=== PATIENT | female | born 1970 | race Caucasian/White ===

== ENCOUNTER 2024-02-28 10:18 | Emergency (ER) | payer BC, SELFPAY ==
[2024-02-28 10:20] VITALS: BP 161/95
--- NOTE | 2024-02-28 10:41 | ED.GENMED ---
History of Present Illness
General
Chief Complaint: Breathing Problem
Source: patient
Exam Limitations: none
Time Seen by Provider: 02/28/24 10:25
Travel History
Have you had any contact with someone who has COVID-19?: No
Do you have any symptoms of coronavirus? Fever > 100 degrees, chills, cough, shortness of breath, sore throat, loss of taste or smell, muscle aches, or headache?: No
History of Present Illness
History of Present Illness:
See MDM
Past History
Past History
ED Past Medical History: GERD, HTN (history of but not on any medications) and Other (Peptic ulcer disease)
ED Past Surgical History: Orthopedic
Social History
Tobacco: Non-smoker
Alcohol: None
Drug: None
Personal:
Living: with family
Employment: Employed
Phy Exam
Physical Exam
Physical Exam:
See MDM
Scores
Heart Failure Risk
Heart Failure Risk Score: Not Applicable
Course
Orders/Labs/Results
Orders:
Orders
02/28/24 10:23
Electrocardiogram (*1) Urgent
Reason for Study: Chest Pain
EKG- Treatment ONCE
02/28/24 10:39
Ketorolac [Toradol] 30 mg IV NOW STA
02/28/24 11:03
Complete Blood Count/With Diff Urgent
D-Dimer Urgent
02/28/24 12:02
Comprehensive Metabolic Panel Urgent
Troponin I Urgent
02/28/24 12:40
CR Chest - 2 Views Urgent
Comment:
Reason For Exam: left lateral chest pain
02/28/24 12:42
diazePAM [Valium Injection] 2 mg IV NOW STA
Abnormal Lab Results
02/28/24 02/28/24
11:03 12:02
MPV 12.7 H fL
(7.4-10.4)
Chloride 108 H mmol/L
(98-107)
02/28/24 11:03
02/28/24 12:02
Vital Signs
Initial and Last Documented VS:
Initial Vital Signs
Temp Pulse Resp BP Pulse Ox
98.4 F 92 20 161/95 100
02/28/24 10:20 02/28/24 10:20 02/28/24 10:20 02/28/24 10:20 02/28/24 10:20
Last Documented Vital Signs
Temp Pulse Resp BP Pulse Ox
98.4 F 92 20 142/80 97
02/28/24 10:20 02/28/24 10:20 02/28/24 10:20 02/28/24 13:07 02/28/24 13:15
MDM/Problems Addressed
Differential Diagnosis Includes:
HPI and MDM Narrative:
53-year-old female presenting with left-sided chest discomfort and shortness of breath. Patient states the pain occurs when she takes a deep breath or moves her arm. She noticed the pain occurred suddenly when she woke up from sleep. She denies
any recent travel.
On exam, she is well-appearing and toxic. There is muscle tenderness to her left scapular region. EKG nonischemic. Given her significant pain, will obtain D-dimer. Will give toradol
Physical exam
General: Well appearing and non-toxic
HEENT: protecting airway
Neck: appears supple
CV: No evidence of cyanosis
back: Muscle tenderness to left scapular region
Resp: No accessory muscle use. Lungs clear
Abd: Non-distended
Extremities: No deformities
Neuro: alert
Psych: Normal affect
Skin: Intact
Problems Addressed including Acute and Chronic Conditions affecting care:
1. Chest and back pain
Acuity: acute
Prognosis: stable
Details: Likely in setting of muscle spasm. EKG nonischemic. Will obtain D-dimer and troponin
Updates
D-dimer negative. Chest x-ray shows no acute disease. Patient was going home
Differential Diagnosis (but not limited to): Muscle strain, pneumothorax, PE
Testing considered: CT PE but will obtain D-dimer first
Drug therapy (if applicable): OTC meds, please see d/c instruction regarding Rx drugs
Amount and/or Complexity of Data Reviewed
Clinical info obtained from: Patient
External data reviewed: N/A
Labs I independently reviewed (but not limited to): Troponin normal, D-dimer negative
Radiology: X-ray independently reviewed: Chest x-ray clear
Pulse Ox: not hypoxic
EKG independently reviewed: Sinus rhythm, normal axis, no STEMI
Toilet And Laundry Soap Supervisor: N/A
Critical Care: N/A
Risk of Complication:
Social Determinants of health: Good social support
Discussed with other providers: N/A
Escalation of Care includes Admit/Obs: After being observed in the Emergency Department, pt stable for discharge.
Occasional wrong word or 'sound a like' substitutions may have occurred due to the inherent limitations of voice recognition software. Read the chart carefully and recognize, using context, where substitutions have occurred.
*Critical Care Note
Total Time (30-74mins, 75-104mins- exclusive of procedures): Not Applicable
ED Attending Note
-
Portions of this chart may have been created with voice recognition software.� Occasional wrong word or��sound alike� substitutions may have occurred due to the inherent limitations of voice recognition software.
Discharge Plan
Departure
Patient Disposition: Home (Routine Discharge)
Date of Disposition: 02/28/24
Time of Disposition: 13:50
Patient with high blood pressure during this ER visit?: Yes
Discharge Problem:
Muscle strain of chest wall
Instructions: Back Muscle Strain (DC)
Prescriptions:
New
diclofenac potassium 50 mg tablet
50 mg PO BID Qty: 20 0RF
diazepam [Valium] 5 mg tablet
5 mg PO BID PRN (Reason: muscle spasm) Qty: 14 0RF
No Action
gabapentin 300 MG capsule
300 mg PO DAILY
diazepam [Valium] 5 MG tablet
5 mg PO HS
Referrals:
Teresa Warner PA-C [Family Provider] -
Activity Restrictions/Additional Instructions:
Please return for any worsening symptoms.
You may return at any time if you have further concerns.
Please follow up with your doctor at the first available appointment, preferably this week.
Thank you for choosing [facility].
Interventions
Interventions:
*Risk Screen - Suicide Last Done: 02/28/24 11:04
*General Assessment Last Done: 02/28/24 11:04
*Neglect/Abuse Screening Last Done: 02/28/24 11:04
ED- Fall Risk Assessment Last Done: 02/28/24 11:04
*ED COVID-19 Vaccine History Last Done: 02/28/24 11:04
ED- Cardiac Assessment Last Done: 02/28/24 11:04
ED- Pulmonary Assessment Last Done: 02/28/24 11:04
Discharge Date and Time
Print Language: BRAZILIAN
[2024-02-28] MEDS: TORADOL 30 MG IV (11:01)
[2024-02-28 11:04] VITALS: BMI 34.1
[2024-02-28 11:08] VITALS: BP 142/85
[2024-02-28 11:22] LABS: % Basophils 0.7 % (0-2); % Eosinophils 4.6 % (0-6); % Immature Granulocytes 0.2 % (0-0.5); % Monocytes 8.1 % (1.7-9.3); % Neutrophils 53.4 % (42.2-75.2); Absolute Eosinophils 0.3 10^3/uL (0-0.7); Absolute Lymphocytes 1.8 10^3/uL (1.2-3.4); Absolute Monocytes 0.4 10^3/uL (0.1-0.6); Absolute Neutrophils 2.9 10^3/uL (1.4-6.5); Hematocrit 37.1 % (37.0-47.0); Hemoglobin 12.7 g/dL (12.0-16.0); Mean Corp Hgb Conc. 34.2 g/dL (33.0-37.0); Mean Corpuscular Hgb 29.6 pg (27.0-31.0); Mean Corpuscular Volume 86.5 fL (81.0-99.0); Mean Platelet Volume 12.7 fL (7.4-10.4); Nucleated Red Blood Cells % 0 %; Platelet Count 244 10^3/uL (130-400); Red Blood Cell Count 4.29 10^6/uL (4.20-5.40); Red Cell Dist. Width 13.8 % (11.5-14.5); White Blood Cell Count 5.4 10^3/uL (4.8-10.8)
[2024-02-28 12:06] LABS: D-Dimer 0.42 ug/mlFEU (0.00-0.50)
[2024-02-28 12:09] VITALS: BP 148/98
[2024-02-28 12:36] LABS: ALT (SGPT) 17 U/L (0-35); AST (SGOT) 27 U/L (14-36); Albumin 4.8 g/dl (3.5-5.0); Alkaline Phosphatase 76 U/L (38-126); Blood Urea Nitrogen 16 mg/dl (7-17); Calcium 10.1 mg/dl (8.4-10.2); Carbon Dioxide 27 mmol/L (22-30); Chloride 108 mmol/L (98-107); Estimated Creatinine Clearance 86 ml/min; Glucose 94 mg/dl (70-99); Sodium 140 mmol/L (135-145); Total Bilirubin 0.6 mg/dl (0.2-1.3); Total Protein 7.5 g/dl (6.3-8.2); eGFR > 60.00
[2024-02-28] MEDS: VALIUM INJECTION 2 MG IV (12:46)
[2024-02-28 12:48] LABS: Troponin I < 0.012 ng/ml
[2024-02-28 13:07] VITALS: BP 142/80
== END 2024-02-28 14:05 | disposition home or self-care (01) ==
LOC: EMR 10:18
PROVIDERS: EMERGENCY PHYSICIAN Student in an Organized Health Care Education/Training Program; FAMILY PHYSICIAN Physician Assistant Medical
DX: S29.011A Strain of muscle and tendon of front wall of thorax, initial encounter (principal); X58.XXXA Exposure to other specified factors, initial encounter; I10 Essential (primary) hypertension
CPT/HCPCS: 99285; 96374; 96375; 71046; 80053; 84484; 85025; 85379; 93005

== ENCOUNTER → 2024-08-11 09:13 | Outpatient (REF) | payer BC, SELFPAY | LOC: WDC 09:13 | PROVIDERS: ATTENDING PHYSICIAN Physician Assistant Medical | DX: N63.10 Unspecified lump in the right breast, unspecified quadrant (principal); N63.13 Unspecified lump in the right breast, lower outer quadrant | CPT/HCPCS: 76642; 77062; 77066 ==

== ENCOUNTER → 2024-08-25 06:20 | Day surgery (SDC) | payer BC, SELFPAY | LOC: GI 06:20 | PROVIDERS: ATTENDING PHYSICIAN Internal Medicine Gastroenterology | DX: Z12.11 Encounter for screening for malignant neoplasm of colon (principal); K57.30 Diverticulosis of large intestine without perforation or abscess without bleeding; R13.10 Dysphagia, unspecified; R14.0 Abdominal distension (gaseous); K44.9 Diaphragmatic hernia without obstruction or gangrene; K31.89 Other diseases of stomach and duodenum; D12.2 Benign neoplasm of ascending colon; K29.50 Unspecified chronic gastritis without bleeding; K21.9 Gastro-esophageal reflux disease without esophagitis | CPT/HCPCS: 45385; 43239; 88305; 88342 ==

== ENCOUNTER → 2024-09-01 11:16 | Outpatient (REF) | payer BC, SELFPAY | LOC: HWRAD 11:16 | PROVIDERS: ATTENDING PHYSICIAN Internal Medicine Gastroenterology; FAMILY PHYSICIAN Physician Assistant Medical | DX: R14.0 Abdominal distension (gaseous) (principal) | CPT/HCPCS: 76700 ==

== ENCOUNTER → 2024-09-19 16:24 | Outpatient (REF) | payer BC, SELFPAY | LOC: RAD 16:24 | PROVIDERS: ATTENDING PHYSICIAN Internal Medicine Gastroenterology; FAMILY PHYSICIAN Physician Assistant Medical | DX: R10.9 Unspecified abdominal pain (principal) | CPT/HCPCS: 74177; Q9967 ==

== ENCOUNTER 2024-09-23 20:24 | Observation (INO) | payer BC, SELFPAY ==
[2024-09-23 15:00] VITALS: BP 169/106
[2024-09-23 15:28] LABS: % Basophils 0.6 % (0-2); % Eosinophils 2.4 % (0-6); % Immature Granulocytes 0.2 % (0-0.5); % Lymphocytes 27.1 % (20.5-51.1); % Monocytes 7.1 % (1.7-9.3); % Neutrophils 62.6 % (42.2-75.2); Absolute Eosinophils 0.2 10^3/uL (0-0.7); Absolute Lymphocytes 1.7 10^3/uL (1.2-3.4); Absolute Monocytes 0.5 10^3/uL (0.1-0.6); Hematocrit 40.8 % (37.0-47.0); Hemoglobin 13.7 g/dL (12.0-16.0); Mean Corp Hgb Conc. 33.6 g/dL (33.0-37.0); Mean Corpuscular Hgb 29.8 pg (27.0-31.0); Mean Corpuscular Volume 88.7 fL (81.0-99.0); Nucleated Red Blood Cells % 0 %; Platelet Count 280 10^3/uL (130-400); Red Cell Dist. Width 13.1 % (11.5-14.5); White Blood Cell Count 6.4 10^3/uL (4.8-10.8)
[2024-09-23 15:46] LABS: HCG, Serum Qualitative Screen Negative
[2024-09-23 15:48] LABS: ALT (SGPT) 31 U/L (0-35); AST (SGOT) 30 U/L (14-36); Albumin 4.8 g/dl (3.5-5.0); Alkaline Phosphatase 86 U/L (38-126); Blood Urea Nitrogen 14 mg/dl (7-17); Calcium 9.9 mg/dl (8.4-10.2); Carbon Dioxide 26 mmol/L (22-30); Chloride 102 mmol/L (98-107); Glucose 99 mg/dl (70-99); Lipase 97 U/L (23-300); Potassium 4.6 mmol/L (3.5-5.1); Sodium 139 mmol/L (135-145); Total Bilirubin 0.5 mg/dl (0.2-1.3); Total Protein 7.5 g/dl (6.3-8.2); eGFR > 60.00
--- NOTE | 2024-09-23 18:37 | ED.GENMED ---
History of Present Illness
General
Chief Complaint: Abdominal Pain
Time Seen by Provider: 09/23/24 16:04
History of Present Illness
History of Present Illness:
54-year-old female presents the emergency department for evaluation of abdominal distention and right upper quadrant pain for the past several weeks. She initially had upper and lower endoscopy performed by GI with no significant findings with the
exception of mild erythematous mucosa in the gastric antrum. She was recommended to continue twice daily omeprazole. Also had outpatient CT and ultrasound performed showing no distinct findings. She continues with severe right upper quadrant
pain, worse after eating any food.
Past History
Past History
ED Past Medical History: GERD, HTN (history of but not on any medications) and Other (Peptic ulcer disease)
ED Past Surgical History: Orthopedic
Social History
Tobacco: Non-smoker
Alcohol: None
Drug: None
Personal:
Living: with family
Employment: Employed
Review of Systems
Review of Systems
Allergies reviewed?: Yes
All Other Systems: ROS reviewed and negative except as documented in HPI and ROS
Phy Exam
Physical Exam
Physical Exam:
GEN: Well appearing, NAD, WDWN
HEENT: Oral mucosa moist, no scleral icterus
Cardiac: Regular rate
Lung: No respiratory distress, no tachypnea
Abdomen: Soft, focal severe tenderness to the right upper quadrant
MSK: No gross deformity or injuries
Skin: Good color, no pallor or jaundice, no rashes
Neuro: AO x3, moves all extremities freely
Psych: Calm, cooperative
Course
Orders/Labs/Results
Orders:
Orders
09/23/24 15:05
Test Result ONCE
09/23/24 15:19
Complete Blood Count/With Diff Urgent
Comprehensive Metabolic Panel Urgent
HCG, Serum Qualitative Screen Urgent
Lipase Urgent
09/23/24 16:25
HYDROmorphone [Dilaudid] 0.5 mg IV NOW STA
US Abdomen Limited Urgent
Comment:
Reason For Exam: RUQ pain
09/23/24 19:41
Admit/Transfer Patient As Directed
Co-Sign Provider:
Level of Care: Observation services
Assign to:: Medical/Surgical
Physician / Group: dr hernandez
Diagnosis: biliary colic
Code Status As Directed
Resuscitation Status: Full Code
PRN Pain Medication Management As Directed
May give lesser potent ordered pain med per pt: Yes
preference::
Protocol:: Medication orders for pain may be administered in a
manner that supports deferring to patient preference
when the pt is:
- Requesting an ordered lesser potent pain medication.
Least to most potent pain medications are defined
as: acetaminophen < NSAID < tramadol < opioids
(morphine, oxycodone, hydromorphone).
- Requesting a lesser dose of the same medication IF
ORDERED.
- Requesting a less intrusive route of administration
if both routes are prescribed by the provider (PO <
IV).
09/23/24 20:09
Ketorolac [Toradol] 15 mg IV NOW STA
Abnormal Lab Results
09/23/24
15:19
MPV 12.0 H fL
(7.4-10.4)
09/23/24 15:19
09/23/24 15:19
Vital Signs
Initial and Last Documented VS:
Initial Vital Signs
Temp Pulse Resp BP Pulse Ox
98.1 F 91 18 169/106 99
09/23/24 15:00 09/23/24 15:00 09/23/24 15:00 09/23/24 15:00 09/23/24 15:00
Last Documented Vital Signs
Temp Pulse Resp BP Pulse Ox
98.1 F 91 17 169/106 99
09/23/24 15:00 09/23/24 15:00 09/23/24 16:25 09/23/24 15:00 09/23/24 19:37
MDM/Problems Addressed
MDM/Problems Addressed:
Repeat ultrasound shows no evidence for cholecystitis or cholelithiasis. Discussed case with general surgery, they are agreeable to admit the patient for observation to their service for consideration of further evaluation/cholecystectomy in the
morning.
*Critical Care Note
Total Time (30-74mins, 75-104mins- exclusive of procedures): Not Applicable
ED Attending Note
-
Portions of this chart may have been created with voice recognition software.� Occasional wrong word or��sound alike� substitutions may have occurred due to the inherent limitations of voice recognition software.
Discharge Plan
Departure
Patient Disposition: Admit
Date of Disposition: 09/23/24
Time of Disposition: 18:38
Presentation/result/management discussed w/ accepting MD/DO: Surg-Lelo
Discharge Problem:
Biliary colic
Interventions
Interventions:
*Risk Screen - Suicide Last Done: 09/23/24 16:28
*General Assessment Last Done: 09/23/24 19:37
*Neglect/Abuse Screening Last Done: 09/23/24 16:28
ED- Fall Risk Assessment Last Done: 09/23/24 16:27
*ED COVID-19 Vaccine History Last Done: 09/23/24 19:37
QW-Trvcaw-Yzbmiopcpy Assessment Last Done: 09/23/24 19:37
[2024-09-23] MEDS: DILAUDID 0.5 MG IV (18:50)
[2024-09-23 19:35] VITALS: BMI 32.3
[2024-09-23 19:45] VITALS: BP 120/83
--- NOTE | 2024-09-23 20:11 | HPS.HSE ---
Addendum entered and electronically signed by Pedro Louise MD 09/24/24 13:35:
No gallbladder pathology identified on imaging, no evidence surgical issues currently. Transferred to hospitalist service. Refer to Jody Laughlin's progress note.
Original Note:
Family Physician
-
Family Physician: Teresa Warner PA-C
Chief Complaint
-
RUQ pain
History of Present Illness
54 yo female presents to ED for complaints of severe RUQ pain since thursday. PT states she has had ongoing GI issues for many years (GERD, Bloat). Had recent colonoscopy (polyp removed, diverticulosis) and endoscopy (biopsy taken) 09/01/24. pt does
state after colonoscopy and endo abd bloating feels worse. Had out patient ct scan abd 09/19/24 which showed no acute pathology. No nausea, vomiting. But low oral intake as she feels 'too full.'
ABD US FINDINGS: The liver is normal in size, measuring 15.4 cm in length. It is increased in echogenicity. There is no focal hepatic lesion or intrahepatic biliary dilation. The gallbladder is physiologically distended with fluid and shows no
shadowing calculi or wall thickening. The common duct is normal, measuring 4 mm. The pancreas is poorly visualized due to overlying bowel gas.
IMPRESSION: Hepatic fatty infiltration
CT scan abd 09/19/24: IMPRESSION: No acute pathology of the abdomen or pelvis identified.
Small simple right renal cyst. Enlarged.
LAbs in ED unremarkable
Pain persists even after dilaudid.
Medical History
Past Medical History
Past Medical History: Reports GERD and HTN (on no meds)
Past Surgical History: Reports Other
Additional Past Surgical History:
09/01/24 colonoscopy and endoscopy with dr burger
Social History
Tobacco: Non-smoker
Alcohol: Occasional
Drug: None
Personal:
Living: With Family
Employment: Employed
Family History
Family History: Not pertinent
Allergies / Home Medications
Allergies reflects when Allergies were last updated in [facility].
Home Medications with original date entered in [facility]
Allergy/Medication List:
Allergies
Allergy/AdvReac Type Severity Reaction Status Date / Time
vancomycin Allergy Mild Itching Verified 09/23/24 15:01
oseltamivir [From Tamiflu] Allergy Unknown Hives Verified 09/23/24 15:01
amoxicillin [Amoxicillin] Allergy Hives Verified 09/23/24 15:01
cephalexin monohydrate Allergy Anaphylaxis Verified 09/23/24 15:01
[From Keflex]
clindamycin Allergy Hives Verified 09/23/24 15:01
doxycycline Allergy Hives Verified 09/23/24 15:01
iodine Allergy Unknown Verified 09/23/24 15:01
levofloxacin [From Levaquin] Allergy Rash Verified 09/23/24 15:01
Penicillins Allergy Itching Verified 09/23/24 15:01
Home Medications
aspirin 81 mg chewable tablet 81 mg PO HS 09/23/24
docusate sodium 100 mg capsule (Stool Softener) 100 mg PO BID 09/23/24
ibuprofen 200 mg tablet 600 mg PO Q6HPRN PRN mild pain 09/23/24
omeprazole 20 mg capsule,delayed release 20 mg PO BID 09/23/24
Review of Systems
-
History Source: Patient
A 12 point ROS was completed and negative except as noted: Yes
Constitutional: Reports No Symptoms
EENT: Reports No Symptoms
Respiratory: Reports No Symptoms
Cardiac: Reports No Symptoms
Abdomen/GI: Reports Abdominal Pain (RUQ), Anorexia and Pain (10 to 7/10 after pain med)
: Reports No Symptoms
Musculoskeletal: Reports Muscle Pain (right thigh discomfort- pt fell prior to coming to ED) and Other (left knee bruise from fall prior to ED )
Skin: Reports Other (left knee bruise )
Neurological: Reports No Symptoms
Endocrine: Reports No Symptoms
Hematologic/Lymphatic: Reports No Symptoms
Psych: Reports No Symptoms
Physical Exam
Vital Signs
Vital Signs
Temp Pulse Resp BP Pulse Ox
98.1 F 91 17 169/106 99
09/23/24 15:00 09/23/24 15:00 09/23/24 16:25 09/23/24 15:00 09/23/24 19:37
Physical Exam
General: Well Developed, Well Nourished, No Apparent Distress, Comfortable, Appears in Distress and Pain (RUQ)
HEENT: NormoCephalic, Anicteric and Moist mucous membranes
Respiratory: Clear and Non Labored Respirations
Cardiac: S1/S2 and Regular Rhythm
GI: Soft, Tender (RUQ) and Distended (softly distended)
Rectal: Deferred by Provider
Genito-urinary: Deferred by me
Musculoskeletal: No Clubbing and No Cyanosis
Skin: Warm
Neuro: Awake, Oriented, AO x 3 and No Motor Deficits
Hematologic/Lymphatic: No Lymphadenopathy
Psych: Calm
Laboratory Results
-
09/23/24 15:19
09/23/24 15:19
Laboratory Results
Total Bilirubin 0.5 mg/dl (0.2-1.3) 09/23/24 15:19
AST 30 U/L (14-36) 09/23/24 15:19
ALT 31 U/L (0-35) 09/23/24 15:19
Alkaline Phosphatase 86 U/L (38-126) 09/23/24 15:19
Lipase 97 U/L (23-300) 09/23/24 15:19
Data Reviewed
-
CT Scan: Report Reviewed by me (from 09/19/24)
Ultrasound: Report Reviewed by me and Discussed with Physician
Lab Data: Discussed with Physician and Discussed with Nurse
Impression/Plan
-
IMPRESSION:
biliary colic
PLAN:
Admit to service of Dr Lind
med surg obs
#biliary colic
- clears until midnight
-NPO x meds after midnight --> poss OR in am
-PAin control: tylenol, toradol, dilaudid
-cbc bm in am
-ivf: nss @ 75
#GERD
-protonix (in place of omeprazole)
#HTN
-does not take any HTN meds currently
-now hypertense likely pain driven
-monitor for now. MAy need prn meds
- takes asa 81mg prophylactically because of htn--> hold for now given poss OR
dvt propylaxisis: scd
Full code
[2024-09-23] MEDS: TORADOL 15 MG IV (20:23)
[2024-09-23] MEDS: PROTONIX 40 MG PO (22:00)
[2024-09-23] MEDS: NSS 1000 IV (22:00)
[2024-09-23 22:14] VITALS: BP 146/83; BMI 33.3
[2024-09-23] MEDS: DILAUDID 1 MG IV (22:25)
[2024-09-23 23:00] VITALS: BP 136/86
[2024-09-23] MEDS: BENADRYL 25 MG IV (23:45)
--- NOTE | 2024-09-24 05:58 | PTCARENOTE ---
Pt is a 54 y/o F presents to ED for complaints of severe RUQ pain since thursday. PT states she has had ongoing GI issues for many years (GERD, Bloat). Had recent colonoscopy (polyp removed, diverticulosis) and endoscopy (biopsy taken) 09/01/24. pt
does state after colonoscopy and endo abd bloating feels worse. Had out patient ct scan abd 09/19/24 which showed no acute pathology. Pt AOx3, bed in a low position, call light in reach.
[2024-09-24 06:42] LABS: Hematocrit 37.1 % (37.0-47.0); Hemoglobin 11.8 g/dL (12.0-16.0); Mean Corp Hgb Conc. 31.8 g/dL (33.0-37.0); Mean Corpuscular Hgb 29.2 pg (27.0-31.0); Mean Corpuscular Volume 91.8 fL (81.0-99.0); Mean Platelet Volume 12.4 fL (7.4-10.4); Platelet Count 234 10^3/uL (130-400); Red Blood Cell Count 4.04 10^6/uL (4.20-5.40); Red Cell Dist. Width 13.2 % (11.5-14.5); White Blood Cell Count 5.1 10^3/uL (4.8-10.8)
[2024-09-24 07:12] LABS: ALT (SGPT) 25 U/L (0-35); AST (SGOT) 26 U/L (14-36); Albumin 3.8 g/dl (3.5-5.0); Alkaline Phosphatase 65 U/L (38-126); Blood Urea Nitrogen 12 mg/dl (7-17); Calcium 8.9 mg/dl (8.4-10.2); Carbon Dioxide 26 mmol/L (22-30); Chloride 103 mmol/L (98-107); Estimated Creatinine Clearance 73 ml/min; Glucose 87 mg/dl (70-99); Sodium 138 mmol/L (135-145); Total Bilirubin 0.7 mg/dl (0.2-1.3); eGFR > 60.00
[2024-09-24 08:10] VITALS: BP 134/77
[2024-09-24] MEDS: PROTONIX 40 MG PO ×2 (08:39→20:40)
[2024-09-24 09:54] LABS: Urine Albumin Negative (Neg - Trace); Urine Bilirubin Negative (Negative); Urine Character Clear (Clear); Urine Color Yellow; Urine Glucose Negative (Negative); Urine Ketone Negative (Negative); Urine Leukocyte Negative (Negative); Urine Nitrite Negative (Negative); Urine Occult Blood Negative (Negative); Urine Specific Gravity 1.005 (<1.030); Urine Urobilinogen Negative (Neg - 1+)
--- NOTE | 2024-09-24 10:31 | W.PN.HOSP.TC ---
Today's Communication/Plan
-
d-dimer
rib x-ray
consider chest CT
Assessment / Plan
Assessment / Plan
Ms. Aditi Flynn is a 54 yo woman with hx GERD, essential HTN, PUD presents to the ER with several weeks of right upper quadrant pain.
Abdomen/Pelvis CT 09/19/24
IMPRESSION: No acute pathology of the abdomen or pelvis identified.
Small simple right renal cyst. Enlarged.
RUQ US:
FINDINGS: The liver is normal in size, measuring 15.4 cm in length. It is increased in echogenicity. There is no focal hepatic lesion or intrahepatic biliary dilation. The gallbladder is physiologically distended with fluid and shows no shadowing
calculi or wall thickening. The common duct is normal, measuring 4 mm. The pancreas is poorly visualized due to overlying bowel gas.
IMPRESSION: Hepatic fatty infiltration
Pleuritic Pain right chest/upper abdomen
-on exam she is much more tender along palpation of rib than RUQ abdomen. worse with deep breaths
-costochondritis versus rib fracture? no report of falls
-obtain d-dimer and rib x-ray now; consider CT Chest
-gallbladder distended with fluid - no stone - appreciate surgery and if above unremarkable, will consider HIDA scan
GERD
-s/p EGD and colonoscopy 08/25 - erythematous mucosa in antrum biopsied; no gross lesions; 1 4mm polyp; diverticulosis - repeat 5 years; empirically trialed on Protonix BID
-*the pain that she is experiencing now is different from the indigestion/bloating that led to this GI work-up
Essential HTN - not on home medications
DVT PPx
FULL CODE
Anticipated Discharge: 24 - 48 hours
Subjective/Interval History
-
Date of Service: September 24, 2024
pain with palpation along right ribs and worse with inspiration
some tenderness along RUQ not as severe
this pain is not associated with eating and different from previous indigestion and bloating that was worked up 2 weeks ago
Objective Data
-
Labs:
Laboratory Results
09/24/24
06:00
WBC 5.1
Hgb 11.8 L
Hct 37.1
Plt Count 234
Sodium 138
Potassium 4.0
Chloride 103
Carbon Dioxide 26
BUN 12
Creatinine 0.8
Glucose 87
Calcium 8.9
Total Bilirubin 0.7
AST 26
ALT 25
Alkaline Phosphatase 65
Vital Signs:
Vital Signs
Temp Pulse Resp BP Pulse Ox
97.9 F 72 16 134/77 99
09/24/24 08:10 09/24/24 08:10 09/24/24 08:10 09/24/24 08:10 09/24/24 08:10
I&O
09/23/24 09/24/24 09/25/24
06:59 06:59 06:59
Intake Total 1155 / 1155
Balance 1155 / 1155
Review of Systems
-
History Source: Patient
All other systems: Reviewed and negative
Physical Exam
-
General: Other (appears in pain)
HEENT: PERRLA
Respiratory: Clear to Auscultation; Negative Wheezes
Cardiac: Regular Rhythm and S1/S2
GI: Other (mildly tender RUQ, no rebound or guarding )
Musculoskeletal: No Edema and Other (tenderness along right rib cage)
Skin: Warm and Dry; Negative Rash
Neuro: AO x 3
Psych: Calm
Data Reviewed
-
Diagnostic Radiology: Report Reviewed by me
Labs: Labs Reviewed by me
[2024-09-24] MEDS: TORADOL 10 MG IV (10:40)
--- NOTE | 2024-09-24 11:45 | CON.GS ---
Medical History
-
Chief Complaint: right sided pain
History of Present Illness:
This is a 54 yo female with a h/o GERD with recent EGD/Colonoscopy one month ago with erythematous mucosa in the antrum now maintained on omeprazole BID who developed bloating post procedure which has persisted. She notes that over the past 2 weeks
she began having intermittent right sided pain which was exacerbated by movement and deep breathing. The pain became constant and quite severe with any movement causing her to present for evaluation. Eating and drinking does not affect her pain. She
denies nausea or vomiting. She denies fevers or chills. On exam, the abdomen is not tender or distended. She has pain to palpation of the lower right ribs.
Past Medical History
Past Medical History: GERD
Past Surgical History: and Orthopedic (right shoulder, elbow and ankle)
Social History
Tobacco: Non-Smoker
Alcohol: Occasional (holidays)
Drug: Marijuana (medical for shoulder, but none recently)
Family History
Family History: Cancer (mother with lymphoma)
Allergies / Home Medications
Allergy/AdvReac Type Severity Reaction Status Date / Time
amoxicillin [Amoxicillin] Allergy Hives Verified 09/23/24 15:01
cephalexin monohydrate Allergy Anaphylaxis Verified 09/23/24 15:01
[From Keflex]
clindamycin Allergy Hives Verified 09/23/24 15:01
doxycycline Allergy Hives Verified 09/23/24 15:01
iodine Allergy Unknown Verified 09/23/24 15:01
levofloxacin [From Levaquin] Allergy Rash/ITCHIN Verified 09/23/24 21:36
G
oseltamivir [From Tamiflu] Allergy Hives Verified 09/23/24 21:36
Penicillins Allergy Itching Verified 09/23/24 15:01
vancomycin Allergy Itching Verified 09/23/24 21:36
�Medication �Instructions �Recorded �Confirmed �Type
aspirin 81 mg chewable tablet 81 mg PO HS Blood Clot 09/23/24 09/23/24 History
Prevention/Tx
docusate sodium 100 mg capsule 100 mg PO BID Constipation 09/23/24 09/23/24 History
(Stool Softener)
ibuprofen 200 mg tablet 600 mg PO Q6HPRN PRN mild pain 09/23/24 09/23/24 History
omeprazole 20 mg capsule,delayed 20 mg PO BID Gastrointestinal Issue 09/23/24 09/23/24 History
release
Review of Systems
-
History Source: Patient
All other systems: Negative unless noted
A 10 point review of systems was completed, and was negative except as per HPI.
Physical Exam
Vital Signs
Temp Pulse Resp BP Pulse Ox
97.9 F 72 16 134/77 99
09/24/24 08:10 09/24/24 08:10 09/24/24 08:10 09/24/24 08:10 09/24/24 08:10
09/23/24 09/24/24 09/25/24
06:59 06:59 06:59
Actual Weight 77.281 kg
Body Mass Index (BMI) 33.3
Lab Results
09/24/24 06:00
09/24/24 06:00
WBC 5.1 10^3/uL (4.8-10.8) 09/24/24 06:00
Hgb 11.8 g/dL (12.0-16.0) L 09/24/24 06:00
Hct 37.1 % (37.0-47.0) 09/24/24 06:00
Plt Count 234 10^3/uL (130-400) 09/24/24 06:00
Abs Immat Gran (auto) 0.0 10^3/uL (0-0.05) 09/23/24 15:19
Neutrophils % 62.6 % (42.2-75.2) 09/23/24 15:19
Physical Exam
General: Well Developed and Well Nourished
HEENT: Moist Mucous Membranes
Respiratory: Non Labored Respirations
GI: Soft, Non Tender, Non Distended and Other (tender to lower right ribs)
Skin: Warm and Dry
Neuro: Awake, Alert and AO x 3
Psych: Calm
Data Reviewed
-
CT Scan: Image Personally Visualized and interpreted (09/19/24 no significant intraabdominal pathology), Report Reviewed by me, Discussed with Physician and Discussed with Patient
Ultrasound: Image Personally Visualized and interpreted (09/01 and 09/23 with no cholelithiasis and no cholecystitis), Report Reviewed by me, Discussed with Physician and Discussed with Patient
Labs: Labs Reviewed by me, Discussed with Physician and Discussed with Patient
Old Records: Reviewed
Assessment / Plan
-
54 yo female presenting for right side pain for 2 weeks and now becoming more constant and associated with deep breathing and movement. Symptoms not associated with eating. No n/v. No f/c. No abdominal tenderness. Tenderness over right lower ribs.
No intraabdominal pathology and no cholelithiasis on imaging. Doubt this is gallbladder related given imaging findings, history and exam.
--No surgical intervention: will transfer to medicine service for further work up and evaluation
--If no cause identified, can check HIDA with [facility] for further gallbladder work up; can be done as OP as well.
Surgery service to sign off, please call with questions/concerns
[2024-09-24 12:09] LABS: D-Dimer < 0.27 ug/mlFEU (0.00-0.50)
[2024-09-24] MEDS: NSS 1000 IV (13:22)
[2024-09-24] MEDS: LIDOCAINE 4% PATCH 1 PATCH TOPICAL (13:22)
[2024-09-24] MEDS: MYLICON 80 MG PO ×2 (13:25→20:40)
--- NOTE | 2024-09-24 13:43 | W.PN.UPDATE ---
Update Note
Progress Note Update
d-dimer negative; and pain exacerbated with palpation so do not suspect PE
rib x-ray negative for fracture
unclear etiology. Cannot obtain HIDA with [facility] inpatient - confirmed with [facility].
CT A/P was on 09/19 when these symptoms were mild - patient reports it was ordered more for her gastritis symptoms. I will therefore repeat CT A/P with contrast and also order CT chest given pleuritic nature. She tolerated contrast on 09/19; I
will order IV Benadryl before
risks versus benefits of repeat CT discussed with patient
plan discussed with surgery
[2024-09-24 14:51] LABS: Erythrocyte Sed Rate 15 mm/hour (0-20)
[2024-09-24 15:22] VITALS: BP 136/100
[2024-09-24] MEDS: OMNIPAQUE 50 ML PO (15:55)
[2024-09-24] MEDS: BENADRYL 50 MG IV (16:55)
[2024-09-24] MEDS: DILAUDID 0.5 MG IV ×2 (16:55→22:31)
[2024-09-24 18:00] VITALS: BP 155/83
[2024-09-24] MEDS: COLACE 100 MG PO (21:49)
[2024-09-24] MEDS: BENADRYL 25 MG IV (22:31)
[2024-09-24] MEDS: MYLICON PO (22:31)
[2024-09-24 22:45] VITALS: BP 141/80
[2024-09-25] MEDS: NSS 1000 IV (02:29)
[2024-09-25 05:49] LABS: Hematocrit 36.3 % (37.0-47.0); Hemoglobin 11.7 g/dL (12.0-16.0); Mean Corp Hgb Conc. 32.2 g/dL (33.0-37.0); Mean Corpuscular Hgb 29.8 pg (27.0-31.0); Mean Corpuscular Volume 92.4 fL (81.0-99.0); Mean Platelet Volume 12.5 fL (7.4-10.4); Platelet Count 223 10^3/uL (130-400); Red Blood Cell Count 3.93 10^6/uL (4.20-5.40); Red Cell Dist. Width 13.2 % (11.5-14.5); White Blood Cell Count 4.8 10^3/uL (4.8-10.8)
[2024-09-25 06:26] LABS: ALT (SGPT) 24 U/L (0-35); AST (SGOT) 25 U/L (14-36); Albumin 3.7 g/dl (3.5-5.0); Alkaline Phosphatase 64 U/L (38-126); Blood Urea Nitrogen 8 mg/dl (7-17); Calcium 8.7 mg/dl (8.4-10.2); Carbon Dioxide 24 mmol/L (22-30); Chloride 106 mmol/L (98-107); Estimated Creatinine Clearance 73 ml/min; Glucose 83 mg/dl (70-99); Potassium 4.2 mmol/L (3.5-5.1); Sodium 139 mmol/L (135-145); Total Bilirubin 0.7 mg/dl (0.2-1.3); Total Protein 5.9 g/dl (6.3-8.2); eGFR > 60.00
--- NOTE | 2024-09-25 07:56 | W.PN.UPDATE ---
Update Note
Progress Note Update
CTCAP reviewed, no acute surgical issues; unclear etiology, but seems most likely costochondritis; continued work-up per primary
Surgery will sign off; she has an appointment with general surgery this week; recommend follow-up as scheduled with one of the general surgeons to discuss if CCK-HIDA would be useful
[2024-09-25 08:05] VITALS: BP 122/72
--- NOTE | 2024-09-25 08:28 | W.PN.HOSP.TC ---
Addendum entered and electronically signed by Jody Laughlin MD 09/25/24 09:06:
she reports wanting to refill gabapentin for hx neuropathic pain down right arm. potentially this will help current pain as well - Gabapentin 100mg qhs prescribed
Original Note:
Today's Communication/Plan
-
OK for DC today
Assessment / Plan
Assessment / Plan
Ms. Aditi Flynn is a 54 yo woman with hx GERD, essential HTN, PUD presents to the ER with several weeks of right upper quadrant pain.
Abdomen/Pelvis CT 09/19/24
IMPRESSION: No acute pathology of the abdomen or pelvis identified.
Small simple right renal cyst. Enlarged.
RUQ US:
FINDINGS: The liver is normal in size, measuring 15.4 cm in length. It is increased in echogenicity. There is no focal hepatic lesion or intrahepatic biliary dilation. The gallbladder is physiologically distended with fluid and shows no shadowing
calculi or wall thickening. The common duct is normal, measuring 4 mm. The pancreas is poorly visualized due to overlying bowel gas.
IMPRESSION: Hepatic fatty infiltration
Ribs X-Ray 09/24/24
IMPRESSION: No acute pulmonary process. No acute rib fracture identified radiographically.
CT Chest/Abdomen/Pelvis
IMPRESSION: No acute pathology of the chest, abdomen or pelvis identified.
Simple right renal cyst. Stable
Moderate fecal material throughout the colon. Progressed
Pleuritic Pain right chest/upper abdomen
-on exam she is much more tender along palpation of rib than RUQ abdomen. worse with deep breaths
-x-ray without fracture; d-dimer negative (and pain is TTP which does not suggest PE); CT Chest/Abdomen/Pelvis - no acute pathology
-costochondritis versus muscle spasm - patient agrees likely MSK
-start motrin 400 TID RTC x 2 days (patient has hx PUD so need to be cautious) she is on PPI BID; lidocaine patch
-appreciate general surgery - follow up as outpatient for consideration of HIDA with [facility] (can only be done outpatient)
GERD
-s/p EGD and colonoscopy 08/25 - erythematous mucosa in antrum biopsied; no gross lesions; 1 4mm polyp; diverticulosis - repeat 5 years; empirically trialed on Protonix BID
-*the pain that she is experiencing now is different from the indigestion/bloating that led to this GI work-up
Essential HTN - not on home medications
DVT PPx
FULL CODE
Anticipated Discharge: Today
Subjective/Interval History
-
Date of Service: September 25, 2024
continues to have pain with palpation
Objective Data
-
Labs:
Laboratory Results
09/25/24
05:01
WBC 4.8
Hgb 11.7 L
Hct 36.3 L
Plt Count 223
Sodium 139
Potassium 4.2
Chloride 106
Carbon Dioxide 24
BUN 8
Creatinine 0.8
Glucose 83
Calcium 8.7
Total Bilirubin 0.7
AST 25
ALT 24
Alkaline Phosphatase 64
Vital Signs:
Vital Signs
Temp Pulse Resp BP Pulse Ox
97.7 F 85 18 122/72 99
09/25/24 08:05 09/25/24 08:05 09/25/24 08:05 09/25/24 08:05 09/25/24 08:05
I&O
09/24/24 09/25/24 09/26/24
06:59 06:59 06:59
Intake Total 1155 / 1155 2099
Balance 1155 / 1155 2099
Review of Systems
-
History Source: Patient
All other systems: Reviewed and negative
Physical Exam
-
General: Other (appears in pain)
HEENT: PERRLA
Respiratory: Clear to Auscultation; Negative Wheezes
Cardiac: Regular Rhythm and S1/S2
GI: Other (mildly tender RUQ, no rebound or guarding )
Musculoskeletal: No Edema and Other (tenderness along right rib cage)
Skin: Warm and Dry; Negative Rash
Neuro: AO x 3
Psych: Calm
Data Reviewed
-
Diagnostic Radiology: Report Reviewed by me
Labs: Labs Reviewed by me
--- NOTE | 2024-09-25 08:52 | W.DS.TRANS ---
DC Summary - Safety Spec
-
Discharge Instructions:
Discharge Diagnosis/Procedures muscle spasm versus costochondritis
Diet Regular
Activity As tolerated
Driving Restrictions As prior to admission
Bathing Restrictions None
Instructions:
Stand-Alone Forms:
Changes to Home Medications: Yes
Discharge Medications:
DC Medications w/original date entered in [employer]
aspirin 81 mg chewable tablet 81 mg PO HS Blood Clot Prevention/Tx 09/23/24
docusate sodium 100 mg capsule (Stool Softener) 100 mg PO BID Constipation 09/23/24
omeprazole 20 mg capsule,delayed release 20 mg PO BID Gastrointestinal Issue 09/23/24
ibuprofen 200 mg tablet 400 mg (2 x 200 mg) PO Q6HPRN PRN mild pain #1 tab 09/25/24
lidocaine 4 % topical patch 1 patch topical DAILY #14 ea 09/25/24
simethicone 80 mg chewable tablet 80 mg PO TID #0 tabs 09/25/24
Home Medication Changes
Take Motrin 400mg once every 8 hours for the next 2-3 days. Take with food and stop if you have worsening stomach upset. Afterwards discuss with your doctor how often you should continue. *And please continue your twice a day Prilosec while on
Motrin.
Ok to hold aspirin 81mg while taking NSAIDs to help protect the stomach.
I am prescribing a lidocaine patch, you can also use OTC topical NSAIDs (voltaren or patches that have an NSAID in them).
Continue taking Gas-X as needed for bloating.
Pending Results: No
[2024-09-25] MEDS: MYLICON 80 MG PO (09:22)
[2024-09-25] MEDS: PROTONIX 40 MG PO (09:22)
[2024-09-25] MEDS: LIDOCAINE 4% PATCH 1 PATCH TOPICAL (09:23)
[2024-09-25] MEDS: MOTRIN 400 MG PO (09:23)
--- NOTE | 2024-09-25 13:16 | W.DCSUMMARY ---
Discharge Summary
Discharge Data
Date of Admission: 09/24/24
Date of Discharge: 09/25/24
-
Pending Results: No
Hospital Course
Discharging Physician : Dr. Jody Laughlin
Disposition : Home
Primary care physician : Dr. Teresa Warner
Principal Discharge diagnosis : Costochondritis versus severe muscle spasm
Hospital Course :
Ms. Aditi Flynn is a 54 yo woman with hx GERD, essential HTN, PUD presents to the ER with several days of significant right lower thoracic/upper abdominal pain tender to palpation and worse with deep breaths.
Triage vitals significant for hypertension. Labs unremarkable with normal WBC, renal function, lipase and liver enzymes. US showed gallbladder with fluid, no gallstones and normal CBD. She was initially admitted to with concern for
cholecystitis but per surgery evaluation this was very unlikely given characteristic of pain and negative imaging/labs.
On exam patient was more tender along palpation of right lower ribs. She had no rash to suggest possible Zoster. D-dimer obtained for completeness which was negative; and given tenderness on exam this was not suggestive of PE. Her prior CT as
outpatient had been ordered for work-up of more chronic GI symptoms, not this severe pain. Therefore CT repeated to obtain chest/abdomen/pelvis and this showed no acute pathology. She was started on a lidocaine patch with some relief.
Etiology of pain with this negative work-up likely MSK: costochondritis or severe muscle spasm. She is discharged with Lidocaine patch, RTC Motrin (lower dose and with food - patient knows to be cautious with hx PUD). She has a history of
radiculopathy and her Gabapentin is refilled at low dosing, as this may help current pain as well. She will follow up closely with outpatient physicians including on - to discuss possible HIDA with [facility] to assess for biliary dyskinesia
if she has no response to above interventions.
Time spent on discharge was 31 minutes.
Important imaging findings :
Abdomen/Pelvis CT 09/19/24
IMPRESSION: No acute pathology of the abdomen or pelvis identified.
Small simple right renal cyst. Enlarged.
RUQ US 09/23/24:
FINDINGS: The liver is normal in size, measuring 15.4 cm in length. It is increased in echogenicity. There is no focal hepatic lesion or intrahepatic biliary dilation. The gallbladder is physiologically distended with fluid and shows no shadowing
calculi or wall thickening. The common duct is normal, measuring 4 mm. The pancreas is poorly visualized due to overlying bowel gas.
IMPRESSION: Hepatic fatty infiltration
Ribs X-Ray 09/24/24
IMPRESSION: No acute pulmonary process. No acute rib fracture identified radiographically.
CT Chest/Abdomen/Pelvis 09/24/24
IMPRESSION: No acute pathology of the chest, abdomen or pelvis identified.
Simple right renal cyst. Stable
Moderate fecal material throughout the colon. Progressed
Procedure findings :
Discharge Plan
-
Patient Disposition: Home (Routine Discharge)
Discharge Diagnosis/Procedures: muscle spasm versus costochondritis
Diet: Regular
Activity: As tolerated
Driving Restrictions: As prior to admission
Bathing Restrictions: None
Activity Restrictions/Additional Instructions:
Follow up with surgery as planned on
Referrals:
Teresa Warner PA-C [Family Provider] - in less than 1 week
Additional Discharge Medication Instructions: Take Motrin 400mg once every 8 hours for the next 2-3 days. Take with food and stop if you have worsening stomach upset. Afterwards discuss with your doctor how often you should continue. *And please
continue your twice a day Prilosec while on Motrin.
Ok to hold aspirin 81mg while taking NSAIDs to help protect the stomach.
I am prescribing a lidocaine patch, you can also use OTC topical NSAIDs (voltaren or patches that have an NSAID in them).
I am prescribing Gabapentin for neuropathic pain - this can be increased as outpatient.
Continue taking Gas-X as needed for bloating.
Prescriptions:
New
lidocaine 4 % Adhesive Patch,Medicated
1 patch topical DAILY Qty: 14 0RF
simethicone 80 mg Tablet,Chewable
80 mg PO TID Qty: 0 0RF
gabapentin 100 mg capsule
100 mg PO HS Qty: 30 0RF
Continued
docusate sodium [Stool Softener] 100 mg Capsule
100 mg PO BID
omeprazole 20 mg Capsule,Delayed Release(Dr/Ec)
20 mg PO BID
aspirin 81 mg Tablet,Chewable
81 mg PO HS
Changed
ibuprofen 200 mg Tablet
400 mg PO Q6HPRN PRN (Reason: mild pain) Qty: 1 0RF
Discharge Orders:
Discharge Patient (As Directed); Ordered 09/25/24
Ordered By: Jody Laughlin
Discharge Date and Time
Discharge Date/Time: 09/25/24 10:25
Print Language: LIBERIAN
== END 2024-09-25 10:25 | disposition home or self-care (01) ==
LOC: 2 SOUTH 20:24
PROVIDERS: Emergency Medicine; Nurse Practitioner Family; Registered Nurse; ADMITTING PHYSICIAN Surgery; ATTENDING PHYSICIAN Student in an Organized Health Care Education/Training Program; CONSULT PHYSICIAN Surgery; EMERGENCY PHYSICIAN Emergency Medicine; FAMILY PHYSICIAN Physician Assistant Medical
DX: R07.89 Other chest pain (principal); R10.11 Right upper quadrant pain; N28.1 Cyst of kidney, acquired; I10 Essential (primary) hypertension; K21.9 Gastro-esophageal reflux disease without esophagitis; M54.10 Radiculopathy, site unspecified; K57.30 Diverticulosis of large intestine without perforation or abscess without bleeding; R14.0 Abdominal distension (gaseous); K76.0 Fatty (change of) liver, not elsewhere classified; K59.00 Constipation, unspecified; Z79.82 Long term (current) use of aspirin; Z80.7 Family history of other malignant neoplasms of lymphoid, hematopoietic and related tissues; Z87.11 Personal history of peptic ulcer disease; Z88.0 Allergy status to penicillin; Z88.1 Allergy status to other antibiotic agents; Z91.041 Radiographic dye allergy status
CPT/HCPCS: 71101; 71260; 74177; 76705; 80053; 81003; 83690; 84703; 85025; 85027; 85379; 85652; 86140; 96374; 99285; Q9967

== ENCOUNTER → 2024-09-29 15:23 | Outpatient (REF) | payer BC, SELFPAY | LOC: RAD 15:23 | PROVIDERS: ATTENDING PHYSICIAN Family Medicine; FAMILY PHYSICIAN Physician Assistant Medical | DX: M79.602 Pain in left arm (principal) | CPT/HCPCS: 93971 ==

== ENCOUNTER → 2025-09-12 16:03 | Outpatient (REF) | payer BC, SELFPAY | LOC: RCS 16:03 | PROVIDERS: ATTENDING PHYSICIAN Internal Medicine Cardiovascular Disease; FAMILY PHYSICIAN Physician Assistant Medical | DX: R42 Dizziness and giddiness (principal); R06.09 Other forms of dyspnea | CPT/HCPCS: 93306 ==